=== PATIENT | male | born 1960 | race Two or more races ===

== ENCOUNTER 2021-06-22 10:28 | Inpatient (IN) | payer OTHER ==
[~2021-06-22] VITALS: Ht 167.6 cm; Wt 72.1 kg
[2021-06-22] MEDS ORDERED: GLIMEPIRIDE4 M1 (12:12)
[2021-06-22] MEDS ORDERED: METOPROLOL SUC100 MG (12:12)
[2021-06-22] MEDS ORDERED: JANUMET 50-1,01 EACH (12:12)
[2021-06-28] MEDS ORDERED: TRAMADOL HCL50 MG (15:58)
[2021-06-28] MEDS ORDERED: SULINDAC200 MG (15:58)
== END 2021-07-01 11:35 | disposition home or self-care (01) | DRG 177 ==
LOC: ER 10:28 → MEDJ 19:59 → SEC-K 19:59 → MEDJ 22:51
PROVIDERS: ADMIT Internal Medicine Cardiovascular Disease; ATTEND Internal Medicine Cardiovascular Disease
PROC: CB2YYZZ Tomographic (Tomo) Nuclear Medicine Imaging of Respiratory System using Other Radionuclide (ICD-10-PCS; 2021-06-22)
PROC: 4A12X4Z Monitoring of Cardiac Electrical Activity, External Approach (ICD-10-PCS; 2021-06-23)
PROC: 30233N1 Transfusion of Nonautologous Red Blood Cells into Peripheral Vein, Percutaneous Approach (ICD-10-PCS; principal; 2021-06-24)
PROC: XW033E5 Introduction of Remdesivir Anti-infective into Peripheral Vein, Percutaneous Approach, New Technology Group 5 (ICD-10-PCS; 2021-06-24)
DX: U07.1 COVID-19 (principal); J12.82 Pneumonia due to coronavirus disease 2019; I10 Essential (primary) hypertension; D64.9 Anemia, unspecified; R41.82 Altered mental status, unspecified; D58.0 Hereditary spherocytosis; E11.65 Type 2 diabetes mellitus with hyperglycemia; Z79.4 Long term (current) use of insulin; E86.0 Dehydration; E87.8 Other disorders of electrolyte and fluid balance, not elsewhere classified; R09.02 Hypoxemia